=== PATIENT | male | born 1950 | race Caucasian/White ===

== ENCOUNTER 2020-03-01 10:55 | Day surgery (SDC) | payer OTHER ==
[~2020-03-01] VITALS: Ht 182.9 cm; Wt 112.5 kg
[~2020-03-01 10:55] MED LIST: AMLO10 PO; BYSTOLIC PO; LOSARTAN PO
== END 2020-03-01 13:18 | disposition home or self-care (01) ==
LOC: ORSCSDS 10:55
PROVIDERS: Surgery
PROC: 0DBL8ZX Excision of Transverse Colon, Via Natural or Artificial Opening Endoscopic, Diagnostic (ICD-10-PCS; principal; 2020-03-01 12:00)
PROC: 0DBP8ZX Excision of Rectum, Via Natural or Artificial Opening Endoscopic, Diagnostic (ICD-10-PCS; principal; 2020-03-01 12:00)
DX: Z12.11 Encounter for screening for malignant neoplasm of colon (principal); Z86.010 Personal history of colon polyps; K62.1 Rectal polyp; D12.3 Benign neoplasm of transverse colon; G47.33 Obstructive sleep apnea (adult) (pediatric); K57.30 Diverticulosis of large intestine without perforation or abscess without bleeding; I10 Essential (primary) hypertension; E66.9 Obesity, unspecified; Z68.33 Body mass index [BMI] 33.0-33.9, adult; Z79.899 Other long term (current) drug therapy
CPT/HCPCS: 88305; J2405; J2704; J7120

== ENCOUNTER 2021-12-13 06:13 | Day surgery (SDC) | payer MEDICARE, OTHER ==
[~2021-12-13] VITALS: Ht 185.4 cm; Wt 105.8 kg
[2021-12-13] MEDS ORDERED: CARV25 PO (06:31)
[2021-12-13] MEDS ORDERED: ELIQUIS5 M2 PO (06:38)
[2021-12-13] MEDS ORDERED: VITAMIN D325 MC3 PO (06:38)
[2021-12-13] MEDS ORDERED: ATOR40TA PO (06:38)
--- NOTE | 2021-12-13 08:08 | NUR ---
12/13/21 0807 LISY ESPOSITO 0.15ML OF EPI (1ML/1MG) ADDED TO 30MLS OF LIDOCAINE 1% TO CREATE A LOCAL SOLUTION OF LIDOCAINE 1% WITH 1:200,000 EPI. 2.5MLS OF LOCAL SOLUTION INJECTED INTO OPERATIVE SITE AT BEGINNING OF CASE BY DR. CALDERON
== END 2021-12-13 10:15 | disposition home or self-care (01) ==
LOC: ORSCSDS 06:13
PROVIDERS: Otolaryngology
PROC: 0GTG0ZZ Resection of Left Thyroid Gland Lobe, Open Approach (ICD-10-PCS; principal; 2021-12-13 07:30)
DX: E04.1 Nontoxic single thyroid nodule (principal); I10 Essential (primary) hypertension; I48.91 Unspecified atrial fibrillation; Z79.01 Long term (current) use of anticoagulants; Z79.899 Other long term (current) drug therapy; G47.33 Obstructive sleep apnea (adult) (pediatric)
CPT/HCPCS: 88307; A9270; J0171; J1100; J2250; J2370; J2405; J2704; J3010; J7120